=== PATIENT | female | born 1950 | race Caucasian/White ===

== ENCOUNTER 2017-08-28 13:19 | Outpatient (CLI) | payer MEDICARE, OTHER ==
[2017-08-28 18:26] LABS: ALBUMIN/GLOBULIN RATIO 1.4 (1.0-2.2); BUN - BLOOD UREA NITROGEN 13 mg/dL (6-20); CALCIUM 9.3 mg/dL (8.5-10.3); CARBON DIOXIDE - CO2 27 mmol/L (21-32); CHLORIDE 102 mmol/L (101-111); CHOL/HDL RATIO 3.8 (<4.4); CHOLESTEROL 195 mg/dL; CREATININE 0.6 mg/dL (0.4-1.0); GFR - MDRD 100 (>89); GLUCOSE 87 mg/dL (70-100); HDL CHOLESTEROL 52 mg/dL; POTASSIUM 3.9 mmol/L (3.5-5.0); SODIUM 138 mmol/L (135-145); TOTAL PROTEIN 7.7 g/dL (6.7-8.2); TRIGLYCERIDES 201 mg/dL; VLDL CHOLESTEROL 40 mg/dL
== END 2017-08-28 13:20 | disposition home or self-care (01) ==
LOC: LAB.F 13:19
PROVIDERS: ATTEND Internal Medicine Cardiovascular Disease
DX: E78.2 Mixed hyperlipidemia (principal)
CPT/HCPCS: 36415; 80053; 80061; 82550

== ENCOUNTER 2018-08-23 11:02 | Outpatient (CLI) | payer MEDICARE, OTHER ==
[2018-08-23 18:13] LABS: ALBUMIN 4.4 g/dL (3.2-5.5); ALBUMIN/GLOBULIN RATIO 1.5 (1.0-2.2); ALKALINE PHOSPHATASE 60 IU/L (42-121); ALT ALANINE AMINOTRANSFERASE 20 IU/L (10-60); AST ASPARTATE AMINOTRANSFERASE 37 IU/L (10-42); BILIRUBIN,TOTAL 0.8 mg/dL (0.2-1.0); BUN - BLOOD UREA NITROGEN 12 mg/dL (6-20); CHOLESTEROL 158 mg/dL; CK- CREATINE KINASE 85 IU/L (22-269); CREATININE 0.6 mg/dL (0.4-1.0); GFR - MDRD 99 (>89); HDL CHOLESTEROL 53 mg/dL; LDL CHOLESTEROL,CALCULATED 84 mg/dL; LDL/HDL RATIO 1.6 (<4.4); TOTAL PROTEIN 7.3 g/dL (6.7-8.2); VLDL CHOLESTEROL 21 mg/dL
[2018-08-23 18:38] LABS: CALCIUM 9.3 mg/dL (8.5-10.3); CARBON DIOXIDE - CO2 30 mmol/L (21-32); CHLORIDE 103 mmol/L (101-111); GLUCOSE 87 mg/dL (70-100); SODIUM 140 mmol/L (135-145)
== END 2018-08-23 11:03 | disposition home or self-care (01) ==
LOC: LAB.F 11:02
PROVIDERS: ATTEND Internal Medicine Cardiovascular Disease
DX: I48.0 Paroxysmal atrial fibrillation (principal); E78.5 Hyperlipidemia, unspecified; I10 Essential (primary) hypertension
CPT/HCPCS: 36415; 80053; 80061; 82550; 83721